=== PATIENT | male | born 1995 | race African-American/Black ===

== ENCOUNTER 2018-10-09 23:45 | Emergency (ER) | payer MEDICAID ==
[~2018-10-09] VITALS: Ht 185.4 cm; Wt 73.0 kg
[2018-10-10] MEDS ORDERED: IBUPROFEN 600MG TABLET PO ONE (01:30)
[2018-10-10 03:27] VITALS: BP 122/72
== END 2018-10-10 03:32 | disposition home or self-care (01) ==
LOC: ER 23:45
DX: S93.402A Sprain of unspecified ligament of left ankle, initial encounter (principal); F12.10 Cannabis abuse, uncomplicated; W21.05XA Struck by basketball, initial encounter; Y93.67 Activity, basketball; Y92.89 Other specified places as the place of occurrence of the external cause; Y99.8 Other external cause status
CPT/HCPCS: 73610; 99283

== ENCOUNTER 2019-04-02 07:56 | Emergency (ER) | payer MEDICAID ==
[~2019-04-02] VITALS: Ht 198.1 cm; Wt 75.0 kg
[2019-04-02] MEDS ORDERED: IBUPROFEN 600MG TABLET PO ONE (10:45)
[2019-04-02 12:50] VITALS: BP 128/89
== END 2019-04-02 12:55 | disposition home or self-care (01) ==
LOC: ER 07:56
DX: J02.9 Acute pharyngitis, unspecified (principal); F12.90 Cannabis use, unspecified, uncomplicated
CPT/HCPCS: 87070; 87430; 99283